=== PATIENT | male | born 1950 | race Caucasian/White ===

== ENCOUNTER 2018-04-12 12:05 | Emergency (ER) | payer MEDICARE ==
[2018-04-12] MEDS: ACETAMINOPHEN 500 MG TAB PO (12:26)
== END 2018-04-12 13:46 | disposition home or self-care (01) ==
LOC: E/R 12:05
DX: S80.01XA Contusion of right knee, initial encounter (principal); R40.2142 Coma scale, eyes open, spontaneous, at arrival to emergency department; R40.2252 Coma scale, best verbal response, oriented, at arrival to emergency department; R40.2362 Coma scale, best motor response, obeys commands, at arrival to emergency department; I10 Essential (primary) hypertension; W18.30XA Fall on same level, unspecified, initial encounter; Y92.239 Unspecified place in hospital as the place of occurrence of the external cause
CPT/HCPCS: 73562; 99283-25